=== PATIENT | male | born 1975 | race Caucasian/White ===

== ENCOUNTER 2020-06-18 12:57 | Outpatient (REF) | payer OTHER, SELFPAY ==
[2020-06-18 14:07] LABS: Alanine Aminotransferase 17 U/L (0-40); Albumin Level 4.3 g/dL (3.5-5.0); Alkaline Phosphatase 43 U/L (39-117); Anion Gap 12 (12-20); Aspartate Amino Transferase 16 U/L (5-37); Bilirubin Total 0.7 mg/dL (0.0-1.0); Blood Urea Nitrogen 15 mg/dL (9-16); Calcium 8.6 mg/dL (8.4-10.2); Carbon Dioxide 24 mmol/L (22-29); Chloride 107 mmol/L (96-108); Cholesterol 151 mg/dL; Estimated Glomerular Filt Rate > 60; Glucose Fasting 89 mg/dL (60-99); HDL Cholesterol 48 mg/dL; LDL Cholesterol Calculated 93 mg/dl; Potassium 4.2 mmol/l (3.3-5.1); Sodium 139 mmol/L (135-145); Total Protein 6.5 g/dL (6.5-8.0); Triglycerides 54 mg/dL
[2020-06-18 14:21] LABS: SARS COV2 IgG Negative (Negative)
[2020-06-18 14:27] LABS: TSH reflex Free T4 1.88 mIU/mL (0.32-4.0)
== END 2020-06-18 12:58 | disposition home or self-care (01) ==
LOC: HO.WFDLDS 12:57
PROVIDERS: Visit Provider Family Medicine
DX: Z20.828 Contact with and (suspected) exposure to other viral communicable diseases (principal); Z00.00 Encounter for general adult medical examination without abnormal findings
CPT/HCPCS: 80053; 80061; 84443; 86769

== ENCOUNTER → 2024-08-16 09:35 | Outpatient (BNVA) | payer OTHER, SELFPAY | PROVIDERS: PCP Internal Medicine; Visit Provider Internal Medicine | DX: M79.601 Pain in right arm (principal); G61.82 Multifocal motor neuropathy; R29.898 Other symptoms and signs involving the musculoskeletal system; R94.131 Abnormal electromyogram [EMG]; Z76.89 Persons encountering health services in other specified circumstances | CPT/HCPCS: 96127; 99202 ==

== ENCOUNTER 2024-08-16 11:06 | Outpatient (REF) | payer OTHER, SELFPAY ==
[2024-08-16 14:21] LABS: MANUAL DIFF FLAG NO
[2024-08-16 14:23] LABS: Basophils Percent Auto 0.6 % (0-2); Eosinophils Absolute Auto 0.1 X10*3/uL (0.0-0.4); Eosinophils Percent Auto 1.2 % (0-4); Hematocrit 43.2 % (42.0-52.0); Hemoglobin 14.4 g/dl (14.0-18.0); Imm Gran Abs Auto 0.02 X10*3/uL (0.00-0.03); Imm Gran Pct Auto 0.3 % (0.0-0.4); Lymphocytes Absolute Auto 1.4 X10*3/uL (1.2-4.9); Lymphocytes Percent Auto 21.7 % (20-40); Mean Corpuscular HGB Conc 33.3 g/dl (31.0-36.0); Mean Corpuscular Hemoglobin 28.3 pg (27.0-33.0); Mean Corpuscular Volume 84.9 fL (80.0-98.0); Mean Platelet Volume 10.3 fL (9.4-12.4); Monocytes Absolute Auto 0.4 X10*3/uL (0.1-1.2); Monocytes Percent Auto 5.9 % (2-11); Neutrophils Absolute Auto 4.5 x10*3/uL (2.0-8.3); Neutrophils Percent Auto 70.3 % (45-73); Platelet Count 282 X10*3/uL (160-400); Red Blood Count 5.09 X10*6/uL (4.60-5.80); Red Cell Distribution Width 12.9 % (11.0-16.0); White Blood Count 6.4 X10*3/uL (4.8-10.8)
[2024-08-16 14:57] LABS: Alanine Aminotransferase 27 U/L (0-40); Albumin Level 4.5 g/dL (3.5-5.0); Alkaline Phosphatase 59 U/L (39-117); Anion Gap 17 (12-20); Aspartate Amino Transferase 29 U/L (5-37); Bilirubin Total 0.9 mg/dL (0.0-1.0); Blood Urea Nitrogen 12 mg/dL (9-16); Calcium 9.5 mg/dL (8.4-10.2); Carbon Dioxide 22 mmol/L (22-29); Chloride 105 mmol/L (96-108); Cholesterol 165 mg/dL (<200); Estimated Glomerular Filt Rate > 60; Glucose Random 99 mg/dL (60-115); HDL Cholesterol 40 mg/dL (>40); LDL Cholesterol Calculated 106 mg/dL (<100); Sodium 140 mmol/L (135-145); Total Protein 7.6 g/dL (6.5-8.0); Triglycerides 95 mg/dL (<150)
[2024-08-16 15:02] LABS: Estimated Average Glucose 100 mg/dL; Hemoglobin A1C 118.8604 umol/L; Hemoglobin A1c % 5.1 % (<6.0); Total Hemoglobin (HGBA1C) 3710.5723 umol/L
[2024-08-16 15:22] LABS: Folate 7.6 ng/mL (> or = 4.0); Vitamin B12 285 pg/mL (200-900)
[2024-08-20 11:13] LABS: Prot Elec - Albumin 4.5 g/dL (3.8-4.8); Prot Elec - Alpha1 0.3 g/dL (0.2-0.3); Prot Elec - Alpha2 0.6 g/dL (0.5-0.9); Prot Elec - Beta 1 0.5 g/dL (0.4-0.6); Prot Elec - Beta 2 0.3 g/dL (0.2-0.5); Prot Elec - Gamma 0.7 g/dL (0.8-1.7); Prot Elec - Total Protein 6.9 g/dL (6.1-8.1)
[2024-08-21 06:39] LABS: PEU-Protein Creat Ratio Rand 0.134 (0.025-0.148); PEU-Rand. Prot/Creat Ratio 134 mg/g creat (25-148); PEU-Random Ur. Gamma Globulin 0 %; PEU-Random Urine A1 Globulin 0 %; PEU-Random Urine A2 Globulin 0 %; PEU-Random Urine Albumin 100 %; PEU-Random Urine Beta Globulin 0 %; PEU-Random Urine Creatinine 157 mg/dL (20-320); PEU-Random Urine Protein 21 mg/dL (5-25)
== END 2024-08-16 11:07 | disposition home or self-care (01) ==
LOC: HO.WFDLDS 11:06
PROVIDERS: Visit Provider Internal Medicine
DX: Z13.0 Encounter for screening for diseases of the blood and blood-forming organs and certain disorders involving the immune mechanism (principal); Z13.228 Encounter for screening for other metabolic disorders; R29.898 Other symptoms and signs involving the musculoskeletal system; G61.82 Multifocal motor neuropathy; R94.131 Abnormal electromyogram [EMG]; Z13.220 Encounter for screening for lipoid disorders
CPT/HCPCS: 80053; 80061; 82570; 82607; 82746; 83036; 84156; 84165; 84166; 84443; 85025

== ENCOUNTER → 2024-09-04 10:22 | Outpatient (BNV) | payer OTHER, SELFPAY | PROVIDERS: PCP Internal Medicine; Visit Provider Radiology Diagnostic Radiology | DX: M48.02 Spinal stenosis, cervical region (principal) | CPT/HCPCS: 72156 ==

== ENCOUNTER 2024-09-04 10:23 | Outpatient (REF) | payer OTHER, SELFPAY ==
--- NOTE | ~2024-09-04 | MR_ITS ---
EXAMINATION: MR CERVICAL SPINE WITHOUT AND WITH CONTRAST CLINICAL INFORMATION: Multifocal motor neuropathy. COMPARISON: None available. TECHNIQUE: MRI of the cervical spine was obtained using routine sequences with and without contrast. Intravenous contrast: (Gadavist) 10.0 mL. No reported immediate complications FINDINGS: There is an intrinsic trabeculated hyperintense T1 signal throughout the vertebral body of T1. No volume loss. Craniocervical junction is intact. Marginal osteophyte formation and disc desiccation at C4-5 and C5-6 level. No intrinsic bone marrow STIR signal abnormality. Grade 1 retrolisthesis C5-6. Reverse curvature apex at C5. No abnormal enhancement within the cervical spinal cord, central spinal canal or the prevertebral compartment. 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 C2-3: No disc herniation. No neuroforamina stenosis. C3-4: Broad-based disc osteophyte complex formation abutting the ventral aspect thecal sac. No cord compression. No signal abnormality in the spinal cord. Left neuroforamina narrowing on a degenerative basis. C4-5: Broad-based disc osteophyte complex formation abutting the cord. No cord compression. No cord signal abnormality. Bilateral neuroforamina narrowing on a degenerative basis. C5-6: Broad-based disc osteophyte complex formation abutting the cord. No cord compression. No cord signal abnormality. Bilateral neuroforamina stenosis on a degenerative basis. C6-7: Broad-based disc osteophyte compresses formation. No cord compression. No neuroforamina stenosis. C7-T1: No disc herniation. No neuroforamina stenosis. No prevertebral compartment mass or hematoma or fluid collection. Flow void signal within the mean vessels is normal. Codominant vertebral arteries. MR/MR cervical spine wo/w con IMPRESSION: No abnormal enhancing lesion. 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 Multilevel cervical spondylosis more conspicuous at C5-6 resulting in bilateral neuroforamina stenosis without cord compression, cord edema and or myelopathy. Grade 1 retrolisthesis C5-6 likely degenerative. Electronically signed by: Kendrick Deluca MD 09/04/2024 12:25 PM [facility] [place]
[2024-09-04] MEDS: gadobutroL 10 ML VIAL IVPUSH (11:34)
== END 2024-09-04 10:24 | disposition home or self-care (01) ==
LOC: HO.MRI 10:23
PROVIDERS: PCP Internal Medicine; Visit Provider Internal Medicine
DX: G61.82 Multifocal motor neuropathy (principal); R29.898 Other symptoms and signs involving the musculoskeletal system; G56.93 Unspecified mononeuropathy of bilateral upper limbs
CPT/HCPCS: 72156; A9585

== ENCOUNTER 2024-09-12 10:26 | Outpatient (AMB) | payer OTHER, SELFPAY ==
--- NOTE | 2024-09-12 10:29 | MHC.PC.OV ---
Vital Signs 09/12/24 10:35 Height 6 ft Weight 275 lb 8 oz BMI 37.4 BP 126/86 Blood Pressure Location Lt brachial Position Sitting Respiration 16 Pulse 77 Pulse Source Pulse Oximeter Pulse Oximetry (%) 96 Oxygen Delivery Method Room Air Intake Visit Reasons: neurological consult Intake Note: Follow up. Was diagnosed with ALS Distribution Technician Required: No Allergies No Known Allergies Allergy (Verified 09/12/24 10:31) Tobacco use date assessed: 09/12/24 Dental Screening Dental Screen Date: 08/16/24 HPI HPI Comments History of Present Illness Details 48 year old male with a past medical history of right arm pain, demyelinating motor neuropathy presenting for follow up Neuro: Has been having pure motor weakness and atrophy of the right arm. He had been following with orthopedics Dr Eid. Had EMG with Dr Villagomez. EMG shows evidence of an intraspinal process involving his right and asymptomatic left side. MRI spine with degenerative changes no evidence of MS or other lesions. Saw neurology, Dr Rosas at [facility]-thinks likely ALS. Has upcoming CSF studies and labs. Would like to see [facility], awaiting insurance approval ROS see HPI PHYSICAL EXAM: GENERAL: Alert and oriented x 3. NAD EYES: EOMI. Anicteric. HENT: Moist mucous membranes. No scleral icterus. No cervical lymphadenopathy. LUNGS: Clear to auscultation bilaterally. CARDIOVASCULAR: Regular rate and rhythm. No murmur. No JVD. ABDOMEN: Soft, non-tender +bs EXTREMITIES: No edema. Non-tender. SKIN: No rashes or lesions. Warm. NEUROLOGIC: No interval changes PSYCHIATRIC: Cooperative. 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 Current occupational exposures/hazards: No Cognitive needs: No Hearing needs: No Vision needs: No Questionnaire Thrive Questionnaire Date Thrive assessed: 08/16/24 I am a: Patient What is your living situation today?: I have a steady place to live Within the past 12 months, did the food you bought not last and you didn't have the money to get more?: I choose not to answer this question Within the past 12 months, did you worry whether your food would run out before you got money to buy more?: Never true Do you have trouble paying for medicines?: No Do you have trouble getting transportation to medical appointments?: No Do you have trouble paying your heating and electricity bill?: No Do you have trouble taking care of your child, family member or friend?: No Do you have trouble with day-to-day activities such as bathing, preparing meals, shopping, managing finances, etc.?: Yes Are you currently unemployed and looking for a job?: No Are you interested in more education?: I choose not to answer this question Please select the resources that you would like help with: None Currently or been in a relationship where the following occur: No concerns reported THRIVE Score: 0 KIMMY-7 AMB Questionnaire KIMMY-7 Date KIMMY - 7 assessed: 08/16/24 Source: Developed by Drs. Fausto Berger, Kasie Hadley, Rishi Rojas and colleagues, with an educational hannah from [employer]. Physical exam (Primary Care) Vital Signs: Last Vital Signs Pulse 77 09/12/24 10:35 Resp 16 09/12/24 10:35 BP 126/86 09/12/24 10:35 Pulse Ox 96 09/12/24 10:35 Oxygen Delivery Method Room Air 09/12/24 10:35 BMI result Body Mass Index 37.4 Tobacco/Smoking Status: Tobacco use Status Tobacco use date assessed 09/12/24 09/12/24 10:38 Patient Tobacco Use Status Never used Tobacco 09/12/24 10:35 e-Cigarette/Vaping Use Never Used 09/12/24 10:35 Thrive Assessment: Date of Thrive Assessment Date Thrive assessed 08/16/24 09/12/24 10:31 Currently or been in a relationship where the following occur: No concerns reported Coding Level of Care Code Est Pt Level 4 (29549) Diagnoses 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 Lorazepam sparing prn Update vaccines Medications: New lorazepam 0.5 mg PO BID PRN 30 tabs 1RF anxiety RSVPreF3 antigen-AS01E (PF) 120 mcg/0.5 mL 120 mcg IM ONCE 1 ea 0RF D80.1 - Nonfamilial hypogammaglobulinemia, G61.82 - Multifocal motor neuropathy
[2024-09-12 10:35] VITALS: BP 126/86; PULSE 77; RESP 16; O2SAT 96; BMI 37.4
== END 2024-09-12 11:03 | disposition home or self-care (01) ==
PROVIDERS: PCP Internal Medicine; Visit Provider Internal Medicine
DX: G61.82 Multifocal motor neuropathy (principal)

== ENCOUNTER → 2024-09-12 10:26 | Outpatient (BNVA) | payer OTHER, SELFPAY | PROVIDERS: PCP Internal Medicine; Visit Provider Internal Medicine | DX: G12.21 Amyotrophic lateral sclerosis (principal); G61.82 Multifocal motor neuropathy; D80.1 Nonfamilial hypogammaglobulinemia | CPT/HCPCS: 99212 ==

== ENCOUNTER 2024-10-21 09:38 | Outpatient (AMB) | payer OTHER, SELFPAY ==
--- NOTE | 2024-10-21 09:51 | A.OFFPC_ITS ---
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 He had been following with orthopedics Dr Eid. Had EMG with Dr Villagomez. EMG shows evidence of an intraspinal process involving his right and asymptomatic left side. MRI spine with degenerative changes no evidence of MS or other lesions. Saw neurology, Dr Rosas at [facility]-thinks likely ALS. Had CSF studies and labs. Recently received IVIG therapy. Has not noticed benefit to day Blood pressure has been running high. He was recently started on amlodipine 5mg daily. Despite the medication BP is still running high. He is quite anxious. Might consider SSRI. Has used only lorazepam twice. Has had some headaches intermittently. Stress is high. He is unable to maintain previous work schedule. ROS see HPI PHYSICAL EXAM: GENERAL: Alert and oriented x 3. NAD EYES: EOMI. Anicteric. HENT: Moist mucous membranes. No scleral icterus. No cervical lymphadenopathy. LUNGS: Clear to auscultation bilaterally. CARDIOVASCULAR: Regular rate and rhythm. No murmur. No JVD. ABDOMEN: Soft, non-tender +bs EXTREMITIES: No edema. Non-tender. SKIN: No rashes or lesions. Warm. NEUROLOGIC: No interval changes PSYCHIATRIC: Cooperative. 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 Current occupational exposures/hazards: No Cognitive needs: No Hearing needs: No Vision needs: No Questionnaire Thrive Questionnaire Date Thrive assessed: 08/16/24 I am a: Patient What is your living situation today?: I have a steady place to live Within the past 12 months, did the food you bought not last and you didn't have the money to get more?: I choose not to answer this question Within the past 12 months, did you worry whether your food would run out before you got money to buy more?: Never true Do you have trouble paying for medicines?: No Do you have trouble getting transportation to medical appointments?: No Do you have trouble paying your heating and electricity bill?: No Do you have trouble taking care of your child, family member or friend?: No Do you have trouble with day-to-day activities such as bathing, preparing meals, shopping, managing finances, etc.?: Yes Are you currently unemployed and looking for a job?: No Are you interested in more education?: I choose not to answer this question Please select the resources that you would like help with: None Currently or been in a relationship where the following occur: No concerns reported THRIVE Score: 0 AUDIT C Alcohol Use Questionnaire (AUDIT-C) 1. How often do you have a drink containing alcohol?: 2-3 times a week 2. How many drinks containing alcohol do you have on a typical day when you are drinking?: 1 or 2 3. How often do you have six or more drinks on one occasion?: Never Total Score: 3 KIMMY-7 AMB Questionnaire KIMMY-7 Date KIMMY - 7 assessed: 08/16/24 Source: Developed by Drs. Fausto Berger, Kasie Hadley, Rishi Rojas and colleagues, with an educational hannah from [employer]. Physical exam (Primary Care) Vital Signs: Last Vital Signs Pulse 91 10/21/24 09:54 Resp 16 10/21/24 09:54 BP 134/98 H 10/21/24 10:02 Pulse Ox 96 10/21/24 09:54 Oxygen Delivery Method Room Air 10/21/24 09:54 BMI result Body Mass Index 36.3 Tobacco/Smoking Status: Tobacco use Status Tobacco use date assessed 10/21/24 10/21/24 09:58 Patient Tobacco Use Status Never used Tobacco 10/21/24 10:03 e-Cigarette/Vaping Use Never Used 10/21/24 10:03 Thrive Assessment: Date of Thrive Assessment Date Thrive assessed 08/16/24 10/21/24 09:58 Currently or been in a relationship where the following occur: No concerns reported Coding Level of Care Code Est Pt Level 4 (30251) Diagnoses ALS (amyotrophic lateral sclerosis) G12.21 Hypogammaglobulinemia D80.1 Primary hypertension I10 Hypertension type: primary hypertension Anxiety F41.9 Assessment & Plan Assessment & Plan (1) ALS (amyotrophic lateral sclerosis): Code(s): G12.21 - Amyotrophic lateral sclerosis Category: Medical (2) Hypogammaglobulinemia: Code(s): D80.1 - Nonfamilial hypogammaglobulinemia Category: Medical (3) Hypertension: Code(s): I10 - Essential (primary) hypertension Category: Medical Qualifiers: Hypertension type: primary hypertension Qualified Code(s): I10 - Essential (primary) hypertension (4) Anxiety: Code(s): F41.9 - Anxiety disorder, unspecified Category: Medical Plan Hypertension: inadequately controlled. start atenolol. continue amlodipine ALS: recent IVIG infusions. High anxiety given diagnosis. Needs daycare assistance forms completed. Unclear if [facility] [place] Would like consult in addition to continue treatment locally Consider SSRI. Medications: New atenolol 25 mg PO DAILY 90 tabs 3RF
[2024-10-21 09:54] VITALS: BP 136/92; PULSE 91; RESP 16; O2SAT 96; BMI 36.3
[2024-10-21 10:02] VITALS: BP 134/98
== END 2024-10-21 10:34 | disposition home or self-care (01) ==
LOC: HO.HMCFM 09:39
PROVIDERS: PCP Internal Medicine; Visit Provider Internal Medicine
DX: G12.21 Amyotrophic lateral sclerosis (principal); D80.1 Nonfamilial hypogammaglobulinemia; I10 Essential (primary) hypertension; F41.9 Anxiety disorder, unspecified

== ENCOUNTER → 2024-10-21 09:38 | Outpatient (BNVA) | payer OTHER, SELFPAY | PROVIDERS: PCP Internal Medicine; Visit Provider Internal Medicine | DX: I10 Essential (primary) hypertension (principal); D80.1 Nonfamilial hypogammaglobulinemia; F41.9 Anxiety disorder, unspecified; G12.21 Amyotrophic lateral sclerosis | CPT/HCPCS: 99212 ==

== ENCOUNTER 2024-11-05 14:15 | Outpatient (AMB) | payer OTHER, SELFPAY ==
--- NOTE | 2024-11-05 14:17 | MHC.PC.OV ---
Vital Signs 11/05/24 14:19 Height 6 ft Weight 264 lb 4 oz BMI 35.8 BP 130/84 Blood Pressure Location Lt brachial Position Sitting Respiration 14 Pulse 62 Pulse Source Pulse Oximeter Pulse Oximetry (%) 96 Oxygen Delivery Method Room Air Intake Visit Reasons: BP follow up Intake Note: Blood pressure follow up Allergies No Known Allergies Allergy (Verified 11/05/24 14:19) Tobacco use date assessed: 11/05/24 Dental Screening Dental Screen Date: 08/16/24 HPI HPI Comments History of Present Illness Details 49 year old male with a past medical history of right arm pain, ALS/demyelinating motor neuropathy presenting for follow up BP CV: Hypertension. Last visit atenolol added to amlodipine. BP is much improved. He is tolerating both medications without SE. Denies chest pain, LE edema. Neuro: Has been having pure motor weakness and atrophy of the right arm. He had been following with orthopedics Dr Eid. Had EMG with Dr Villagomez. EMG shows evidence of an intraspinal process involving his right and asymptomatic left side. MRI spine with degenerative changes no evidence of MS or other lesions. Saw neurology, Dr Rosas at [facility]-thinks likely ALS. Had CSF studies and labs. Recently received IVIG therapy. Has not noticed benefit to day. He has had a [place] [facility] [place] would be able to be enrolled in some clinical studies ongoing there He is quite anxious intermittently Might consider SSRI. Has lorazepam prn. Has had some headaches intermittently. Stress is high. He is unable to maintain work due to disability. ROS see HPI PHYSICAL EXAM: GENERAL: Alert and oriented x 3. NAD EYES: EOMI. Anicteric. HENT: Moist mucous membranes. No scleral icterus. No cervical lymphadenopathy. LUNGS: Clear to auscultation bilaterally. CARDIOVASCULAR: Regular rate and rhythm. No murmur. No JVD. ABDOMEN: Soft, non-tender +bs EXTREMITIES: No edema. Non-tender. SKIN: No rashes or lesions. Warm. NEUROLOGIC: No interval changes PSYCHIATRIC: Cooperative. 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 Current occupational exposures/hazards: No Cognitive needs: No Hearing needs: No Vision needs: No Questionnaire Thrive Questionnaire Date Thrive assessed: 08/16/24 I am a: Patient What is your living situation today?: I have a steady place to live Within the past 12 months, did the food you bought not last and you didn't have the money to get more?: I choose not to answer this question Within the past 12 months, did you worry whether your food would run out before you got money to buy more?: Never true Do you have trouble paying for medicines?: No Do you have trouble getting transportation to medical appointments?: No Do you have trouble paying your heating and electricity bill?: No Do you have trouble taking care of your child, family member or friend?: No Do you have trouble with day-to-day activities such as bathing, preparing meals, shopping, managing finances, etc.?: Yes Are you currently unemployed and looking for a job?: No Are you interested in more education?: I choose not to answer this question Please select the resources that you would like help with: None Currently or been in a relationship where the following occur: No concerns reported THRIVE Score: 0 KIMMY-7 AMB Questionnaire KIMMY-7 Date KIMMY - 7 assessed: 08/16/24 Source: Developed by Drs. Fausto Berger, Kasie Hadley, Rishi Rojas and colleagues, with an educational hannah from [employer]. Physical exam (Primary Care) Vital Signs: Last Vital Signs Pulse 62 11/05/24 14:19 Resp 14 11/05/24 14:19 BP 130/84 11/05/24 14:19 Pulse Ox 96 11/05/24 14:19 Oxygen Delivery Method Room Air 11/05/24 14:19 BMI result Body Mass Index 35.8 Tobacco/Smoking Status: Tobacco use Status Tobacco use date assessed 11/05/24 11/05/24 14:23 Patient Tobacco Use Status Never used Tobacco 11/05/24 14:23 e-Cigarette/Vaping Use Never Used 11/05/24 14:23 Thrive Assessment: Date of Thrive Assessment Date Thrive assessed 08/16/24 11/05/24 14:23 Currently or been in a relationship where the following occur: No concerns reported Coding Level of Care Code Est Pt Level 4 (50866) Diagnoses Primary hypertension I10 Hypertension type: primary hypertension ALS (amyotrophic lateral sclerosis) G12.21 Assessment & Plan Assessment & Plan (1) Hypertension: Code(s): I10 - Essential (primary) hypertension Category: Medical Qualifiers: Hypertension type: primary hypertension Qualified Code(s): I10 - Essential (primary) hypertension (2) ALS (amyotrophic lateral sclerosis): Code(s): G12.21 - Amyotrophic lateral sclerosis Category: Medical Plan Blood pressure is adequately controlled with the addition on atenolol Anxiety is still high. Discussed SSRI -not ready at this time, might consider in the future Recommend enrolling in trials [place] offered by [facility] Insurance coverage has been an issue
[2024-11-05 14:19] VITALS: BP 130/84; PULSE 62; RESP 14; O2SAT 96; BMI 35.8
== END 2024-11-05 15:38 | disposition home or self-care (01) ==
LOC: HO.HMCFM 14:15
PROVIDERS: PCP Internal Medicine; Visit Provider Internal Medicine
DX: I10 Essential (primary) hypertension (principal); G12.21 Amyotrophic lateral sclerosis

== ENCOUNTER → 2024-11-05 14:15 | Outpatient (BNVA) | payer OTHER, SELFPAY | PROVIDERS: PCP Internal Medicine; Visit Provider Internal Medicine | DX: I10 Essential (primary) hypertension (principal); G12.21 Amyotrophic lateral sclerosis | CPT/HCPCS: 99212 ==

== ENCOUNTER 2024-12-16 11:51 | Outpatient (AMB) | payer MEDICARE, OTHER, SELFPAY ==
--- NOTE | 2024-12-16 11:52 | MHC.PC.OV ---
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 On atenolol and amlodipine. BP is much improved. He is tolerating both medications without SE. Denies chest pain, LE edema. Neuro: ALS. Following with Dr Beltran at [facility]. In digoxin trial. Has been having pure motor weakness and atrophy of the right arm. He had been following with orthopedics Dr Eid. Had EMG with Dr Villagomez. EMG shows evidence of an intraspinal process involving his right and asymptomatic left side. MRI spine with degenerative changes no evidence of MS or other lesions. Saw neurology, Dr Rosas at [facility]-thinks likely ALS. Had CSF studies and labs He is quite anxious intermittently Might consider SSRI still not ready to try. Has lorazepam prn. Has had some headaches intermittently. Stress is high. He is unable to maintain work due to disability. ROS see HPI PHYSICAL EXAM: GENERAL: Alert and oriented x 3. NAD EYES: EOMI. Anicteric. HENT: Moist mucous membranes. No scleral icterus. No cervical lymphadenopathy. LUNGS: Clear to auscultation bilaterally. CARDIOVASCULAR: Regular rate and rhythm. No murmur. No JVD. ABDOMEN: Soft, non-tender +bs EXTREMITIES: No edema. Non-tender. SKIN: No rashes or lesions. Warm. NEUROLOGIC: No interval changes PSYCHIATRIC: Cooperative. 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 Fausto Berger, Kasie Hadley, Rishi Rojas and colleagues, with an educational hannah from [employer]. Physical exam (Primary Care) Vital Signs: Last Vital Signs Pulse 64 12/16/24 11:54 Resp 16 12/16/24 11:54 BP 108/78 12/16/24 11:54 Pulse Ox 96 12/16/24 11:54 Oxygen Delivery Method Room Air 12/16/24 11:54 Tobacco/Smoking Status: Tobacco use Status Tobacco use date assessed 11/05/24 12/16/24 11:57 Patient Tobacco Use Status Never used Tobacco 12/16/24 11:57 e-Cigarette/Vaping Use Never Used 12/16/24 11:57 Thrive Assessment: Date of Thrive Assessment Date Thrive assessed 08/16/24 12/16/24 11:57 Coding Level of Care Code Est Pt Level 4 (29976) Diagnoses Anxiety F41.9 Primary hypertension I10 Hypertension type: primary hypertension ALS (amyotrophic lateral sclerosis) G12.21 Assessment & Plan Assessment & Plan (1) Anxiety: Code(s): F41.9 - Anxiety disorder, unspecified Category: Medical (2) Hypertension: Code(s): I10 - Essential (primary) hypertension Category: Medical Qualifiers: Hypertension type: primary hypertension Qualified Code(s): I10 - Essential (primary) hypertension (3) ALS (amyotrophic lateral sclerosis): Code(s): G12.21 - Amyotrophic lateral sclerosis Category: Medical Plan ALS-enrolled in trial and following at [facility]. Doing well on digoxin. Some shortness of breath today. Exam is normal. Albuterol trial Anxiety-continue lorazepam HTN-well controlled on current medications Medications: New albuterol sulfate 90 mcg/actuation (Ventolin HFA) 2 puffs inhalation Q6H PRN 8.5 grams 1RF shortness of breath or wheezing Changed From lorazepam 0.5 mg PO BID PRN 30 tabs 1RF anxiety To lorazepam 0.5 mg PO BID 30 days PRN 60 tabs 1RF anxiety Refilled lorazepam 0.5 mg PO BID 30 days PRN 60 tabs 1RF anxiety
[2024-12-16 11:54] VITALS: BP 108/78; PULSE 64; RESP 16; O2SAT 96
== END 2024-12-16 12:17 | disposition home or self-care (01) ==
PROVIDERS: PCP Internal Medicine; Visit Provider Internal Medicine
DX: F41.9 Anxiety disorder, unspecified (principal); I10 Essential (primary) hypertension; G12.21 Amyotrophic lateral sclerosis

== ENCOUNTER → 2024-12-16 11:51 | Outpatient (BNVA) | payer OTHER, SELFPAY | PROVIDERS: PCP Internal Medicine; Visit Provider Internal Medicine | DX: G12.21 Amyotrophic lateral sclerosis (principal); I10 Essential (primary) hypertension; F41.9 Anxiety disorder, unspecified; Z79.899 Other long term (current) drug therapy | CPT/HCPCS: 99212 ==

== ENCOUNTER 2025-02-14 16:34 | Outpatient (AMB) | payer MEDICARE, SELFPAY ==
--- NOTE | 2025-02-14 16:36 | MHC.PC.OV ---
Intake Visit Reasons: ALS and DNR Allergies No Known Allergies Allergy (Verified 11/05/24 14:19) Tobacco use date assessed: 11/05/24 Dental Screening Dental Screen Date: 08/16/24 HPI HPI Comments History of Present Illness Details 49 year old male with a past medical history of right arm pain, ALS/demyelinating motor neuropathy presenting for follow up CV: Hypertension. On atenolol and amlodipine. BP controlled. . Neuro: ALS. Wants to discuss and sign POLST today. We reviewed end of life wishes. He has already singed a health care proxy and advanced directive. He is full code-wants short term life support efforts only. Following with Dr Beltran at [facility]. In digoxin trial. . Saw neurology, Dr Rosas at [facility]-thinks likely ALS. Had CSF studies and labs He is quite anxious intermittently Might consider SSRI still not ready to try. Has lorazepam prn. Has had some headaches intermittently. Stress is high. He is unable to maintain work due to disability. 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 Fausto Berger, Kasie Hadley, Rishi Rojas and colleagues, with an educational hannah from [employer]. Physical exam (Primary Care) Tobacco/Smoking Status: Tobacco use Status Tobacco use date assessed 11/05/24 02/14/25 16:37 Patient Tobacco Use Status Never used Tobacco 02/14/25 16:37 e-Cigarette/Vaping Use Never Used 02/14/25 16:37 Thrive Assessment: Date of Thrive Assessment Date Thrive assessed 08/16/24 02/14/25 16:37 Telehealth Telehealth Telehealth Platform: [employer] Location of provider rendering services: practice address Location of patient: address on file Patient Identification confirmed using: Name, : Yes Telehealth method: voice only Patient verbally consented to treatment: Yes Patient verbally consented to billing insurance company: Yes Patient informed of any privacy concerns related to visit: Yes Minutes spent on Phone/Video with Pt.: 32 Coding Level of Care Code Tele Est Pt Level 4 (91196) Diagnoses Concern about end of life Z71.1 ALS (amyotrophic lateral sclerosis) G12.21 Primary hypertension I10 Hypertension type: primary hypertension Assessment & Plan Assessment & Plan (1) Concern about end of life: Code(s): Z71.1 - Person with feared health complaint in whom no diagnosis is made Category: Medical (2) ALS (amyotrophic lateral sclerosis): Code(s): G12.21 - Amyotrophic lateral sclerosis Category: Medical (3) Hypertension: Code(s): I10 - Essential (primary) hypertension Category: Medical Qualifiers: Hypertension type: primary hypertension Qualified Code(s): I10 - Essential (primary) hypertension Plan 49 yo for follow up Reviewed and completed POLST form. This will be mailed to patient so that he may sign a copy and keep at home HTN-well controlled on current medications
== END 2025-02-14 16:49 | disposition home or self-care (01) ==
LOC: HO.HMCFM 16:34
PROVIDERS: PCP Internal Medicine; Visit Provider Internal Medicine
DX: G12.21 Amyotrophic lateral sclerosis (principal); Z71.1 Person with feared health complaint in whom no diagnosis is made; I10 Essential (primary) hypertension